=== PATIENT | male | born 1985 | race Two or more races ===

== ENCOUNTER 2021-12-04 21:20 | Inpatient (IN) | payer MEDICARE ==
[~2021-12-04] VITALS: Ht 175.3 cm; Wt 72.6 kg
[2021-12-04 22:16] LABS: Basophils # (auto) 0 10 ^3/uL (0-0.2); Basophils % (auto) 0.6 % (0.0-2.0); Eosinophils # (auto) 0.1 10 ^3/uL (0-0.8); Eosinophils % (auto) 1.1 % (0.0-7.0); Hematocrit 26.1 % (41.0-53.0); Hemoglobin 8.9 g/dL (13.5-17.5); Lymphocytes % (auto) 16.4 % (10.0-50.0); Mean Corpuscular Hemoglobin 29.9 pg (28.0-32.0); Mean Corpuscular Hgb Conc. 34.1 g/dL (32.0-36.0); Mean Corpuscular Volume 87.6 fL (80.0-100.0); Monocytes # (auto) 0.5 10 ^3/uL (0-1.3); Monocytes % (auto) 8.6 % (0.0-12.0); Neutrophils # (auto) 4.7 10 ^3/uL (1.6-8.6); Neutrophils % (auto) 73.3 % (37.0-80.0); Red Blood Cells 2.98 10^6/uL (4.5-5.90); Red Cell Distribution Width 18.3 % (11.8-14.3); White Blood Cell 6.4 10^3/uL (4.4-10.8)
[2021-12-04 22:44] LABS: Albumin 3.6 g/dL (3.4-5.0); Calcium 8.2 mg/dL (8.5-10.1); Magnesium 2.6 mg/dL (1.6-2.6); Potassium 5.2 mmol/L (3.5-5.1)
[2021-12-04] MEDS ORDERED: ACETAMINOPHEN 325 MG TAB PO PRN (22:45)
[2021-12-04] MEDS ORDERED: ONDANSETRON HCL 4 MG/2 ML VIAL IV PRN (22:45)
[2021-12-04] MEDS ORDERED: NITROGLYCERIN 0.4 MG SL TAB SL PRN (22:45)
[2021-12-04] MEDS ORDERED: TEMAZEPAM 15 MG CAP PO PRN (22:45)
[2021-12-04] MEDS ORDERED: MORPHINE SULFATE INJ 2 MG/ml SYRG IV PRN (22:45)
[2021-12-04 22:50] LABS: BUN/Creatinine Ratio 5.2; Bilirubin, Total 0.4 mg/dL (0.2-1.0); Total Protein 7.3 g/dL (6.4-8.2)
[2021-12-05 00:56] LABS: Triglycerides 84 mg/dL (< 150)
[2021-12-05 01:10] LABS: Cholesterol 142 mg/dL (< 200); HDL Cholesterol 45 mg/dL (40-59); LDL Cholesterol 87 mg/dL (< 100)
[2021-12-05] MEDS ORDERED: ALBUTEROL SULF 2.5 MG/0.5ML(0.5%) NEB SOLN NEB ONE (01:45)
[2021-12-05] MEDS ORDERED: CALCIUM GLUC 1,000mg/50ml-NS 50 ML IV ONE (01:45)
[2021-12-05] MEDS ORDERED: SODIUM ZIRCONIUM CYCL 10 GM PAK PO ONE (01:45)
[2021-12-05 05:02] LABS: Basophils # (auto) 0 10 ^3/uL (0-0.2); Basophils % (auto) 0.7 % (0.0-2.0); Hemoglobin 7.7 g/dL (13.5-17.5); Monocytes # (auto) 0.5 10 ^3/uL (0-1.3); Neutrophils # (auto) 3.3 10 ^3/uL (1.6-8.6); White Blood Cell 4.9 10^3/uL (4.4-10.8)
[2021-12-05 05:05] LABS: Eosinophils # (auto) 0.1 10 ^3/uL (0-0.8); Eosinophils % (auto) 1.3 % (0.0-7.0); Lymphocytes % (auto) 20.8 % (10.0-50.0); Mean Corpuscular Hemoglobin 30.7 pg (28.0-32.0); Mean Corpuscular Hgb Conc. 35.1 g/dL (32.0-36.0); Mean Corpuscular Volume 87.4 fL (80.0-100.0); Monocytes % (auto) 10.4 % (0.0-12.0); Neutrophils % (auto) 66.8 % (37.0-80.0); Nucleated Red Blood Cells % 0.1 %; Red Blood Cells 2.52 10^6/uL (4.5-5.90); Red Cell Distribution Width 18.3 % (11.8-14.3)
[2021-12-05 09:15] LABS: Calcium 8.5 mg/dL (8.5-10.1); Potassium 4.1 mmol/L (3.5-5.1)
[2021-12-05] MEDS: ASPirin 81 mg TAB PO SCH (09:37)
[2021-12-05] MEDS: AMIODARONE HCL 200 MG TAB PO SCH ×2 (09:38→21:59)
[2021-12-05] MEDS: METOPROLOL SUCCINATE XL 50 MG TAB PO SCH (09:38)
[2021-12-05] MEDS: SACUBITRIL-VALSARTAN 24mg/26mg TAB PO SCH ×2 (09:38→22:00)
[2021-12-05] MEDS ORDERED: AMIODARONE HCL 200 MG TAB PO SCH (10:00)
[2021-12-05] MEDS ORDERED: ENOXAPARIN SOD 30 MG/0.3 ML SYRINGE SC ONE (11:30)
[2021-12-05 22:00] VITALS: BP 122/76
[2021-12-05] MEDS ORDERED: ATORVASTATIN 20 MG TAB PO SCH (22:00)
[2021-12-06] MEDS ORDERED: METO-289 PO (05:18)
[2021-12-06] MEDS ORDERED: AMIO200T33 PO (05:18)
[2021-12-06 07:30] VITALS: BP 137/87
[2021-12-06 08:59] VITALS: BP 137/87
[2021-12-06] MEDS: SACUBITRIL-VALSARTAN 24mg/26mg TAB PO SCH (10:00)
[2021-12-06] MEDS: METOPROLOL SUCCINATE XL 50 MG TAB PO SCH (10:00)
[2021-12-06] MEDS ORDERED: ENOXAPARIN SOD 30 MG/0.3 ML SYRINGE SC SCH (10:00)
[2021-12-06] MEDS: AMIODARONE HCL 200 MG TAB PO SCH (10:39)
[2021-12-06] MEDS: ASPirin 81 mg TAB PO SCH (10:39)
[2021-12-06 11:56] VITALS: BP 137/87
[2021-12-06 13:14] VITALS: BP 134/89
== END 2021-12-06 14:37 | disposition home or self-care (01) | DRG 280 ==
LOC: ER 21:20 → TELE 22:41 → TELE-CENTR 12-05 21:30
PROVIDERS: ADMIT Nurse Practitioner; ATTEND Student in an Organized Health Care Education/Training Program
DX: I48.0 Paroxysmal atrial fibrillation (principal); I50.23 Acute on chronic systolic (congestive) heart failure; I21.A1 Myocardial infarction type 2; N18.6 End stage renal disease; I13.2 Hypertensive heart and chronic kidney disease with heart failure and with stage 5 chronic kidney disease, or end stage renal disease; J98.11 Atelectasis; E03.9 Hypothyroidism, unspecified; E78.5 Hyperlipidemia, unspecified; Z20.822 Contact with and (suspected) exposure to COVID-19; D63.8 Anemia in other chronic diseases classified elsewhere; Z99.2 Dependence on renal dialysis
CPT/HCPCS: 36415; 71045; 80048; 80053; 80061; 83036; 83735; 83880; 84443; 84484; 85025; 87081; 87426; 93005; 93306; 94640; G0378

== ENCOUNTER 2023-01-13 09:42 | Inpatient (IN) | payer MEDICARE ==
[~2023-01-13] VITALS: Ht 172.7 cm; Wt 68.3 kg
[~2023-01-13 09:42] MED LIST: AMIO200T33 PO; METO-289 PO
[2023-01-13] MEDS ORDERED: SODIUM CHLORIDE 0.9% 1,000 ML IV ONE (10:45)
[2023-01-13 10:58] LABS: Basophils # (auto) 0 10 ^3/uL (0-0.2); Eosinophils # (auto) 0 10 ^3/uL (0-0.8); Lymphocytes # (auto) 0.6 10 ^3/uL (0.4-5.4); Mean Corpuscular Hemoglobin 29.8 pg (28.0-32.0); Mean Corpuscular Hgb Conc. 32.9 g/dL (32.0-36.0); Mean Corpuscular Volume 90.6 fL (80.0-100.0); Monocytes # (auto) 0.4 10 ^3/uL (0-1.3); Neutrophils # (auto) 3.5 10 ^3/uL (1.6-8.6); Red Blood Cells 1.88 10^6/uL (4.5-5.90); White Blood Cell 4.5 10^3/uL (4.4-10.8)
[2023-01-13 10:59] LABS: Basophils % (auto) 0.5 % (0.0-2.0); Eosinophils % (auto) 0.1 % (0.0-7.0); Lymphocytes % (auto) 13.9 % (10.0-50.0); Monocytes % (auto) 8.2 % (0.0-12.0); Neutrophils % (auto) 77.3 % (37.0-80.0); Nucleated Red Blood Cells % 0.2 %; Red Cell Distribution Width 16.8 % (11.8-14.3)
[2023-01-13 11:14] LABS: Alanine Aminotransferase 11 U/L (7-40); Albumin 4.2 g/dL (3.2-4.8); Alkaline Phosphatase 85 U/L (46-116); Anion Gap 8 (5-15); Aspartate Aminotransferase < 8 U/L (13-40); BUN/Creatinine Ratio 5.4 (10.0-20.0); Bilirubin, Total 0.5 mg/dL (0.2-1.0); Blood Urea Nitrogen 37 mg/dL (9-23); Calcium 9.4 mg/dL (8.5-10.1); Carbon Dioxide 30 mmol/L (20-30); Chloride 91 mmol/L (98-107); Glucose 81 mg/dL (74-106); Potassium 4.1 mmol/L (3.5-5.1); Sodium 129 mmol/L (136-145); Total Protein 7.1 g/dL (5.7-8.2)
[2023-01-13 11:32] LABS: Hemoglobin 5.6 g/dL (13.5-17.5)
[2023-01-13 11:44] LABS: INR 1.26 (0.9-1.15); Partial Thromboplastin Time 34.2 SEC (24.5-34.5)
[2023-01-13] MEDS ORDERED: FUROSEMIDE 20 MG/2 ML VIAL IV ONE (12:00)
[2023-01-13 12:32] LABS: Platelet Estimate Adequate
[2023-01-13] MEDS ORDERED: MORPHINE SULFATE INJ 2 MG/ml SYRG IV PRN (13:30)
[2023-01-13] MEDS ORDERED: NITROGLYCERIN 0.4 MG SL TAB SL PRN (13:30)
[2023-01-13] MEDS ORDERED: ONDANSETRON HCL 4 MG/2 ML VIAL IV PRN (13:30)
[2023-01-13] MEDS ORDERED: ACETAMINOPHEN 325 MG TAB PO PRN (13:30)
[2023-01-13] MEDS ORDERED: DOCUSATE SOD 100 MG CAP PO PRN (13:30)
[2023-01-13] MEDS ORDERED: CALC0.5C PO (13:31)
[2023-01-13] MEDS ORDERED: FERR1TAB17 PO (13:31)
[2023-01-13] MEDS ORDERED: METO1TAB9 PO (13:31)
[2023-01-13] MEDS ORDERED: CINA30TA14 PO (13:31)
[2023-01-13] MEDS ORDERED: hydrALAZINE HCL 20 MG/ML VL IV PRN (14:00)
[2023-01-13] MEDS: FUROSEMIDE 40 MG/4 ML VIAL IV ONE ×2 (14:11→14:15)
[2023-01-13 21:33] VITALS: PULSE 102; RESP 20; O2SAT 95
[2023-01-13 22:19] VITALS: BP 115/75; PULSE 104; RESP 20; TEMP 102.4
[2023-01-13 22:34] VITALS: BP 113/73; PULSE 100; RESP 19; TEMP 101.1
[2023-01-13 23:00] VITALS: BP 116/72; PULSE 99; RESP 19; TEMP 99.1
[2023-01-13 23:30] VITALS: BP 114/71; PULSE 98; RESP 18; TEMP 99.1
[2023-01-14] VITALS (9 sets, daily range): BP systolic 113–135; BP diastolic 69–86; PULSE 68–98; RESP 16–18; TEMP 36.8; O2SAT 95–99
[2023-01-14 05:58] LABS: Basophils # (auto) 0 10 ^3/uL (0-0.2); Eosinophils # (auto) 0 10 ^3/uL (0-0.8); Lymphocytes # (auto) 0.8 10 ^3/uL (0.4-5.4); White Blood Cell 5.2 10^3/uL (4.4-10.8)
[2023-01-14 06:00] LABS: Basophils % (auto) 0.7 % (0.0-2.0); Eosinophils % (auto) 0.1 % (0.0-7.0); Hematocrit 18.8 % (41.0-53.0); Lymphocytes % (auto) 15.1 % (10.0-50.0); Mean Corpuscular Hemoglobin 30.4 pg (28.0-32.0); Mean Corpuscular Volume 89.6 fL (80.0-100.0); Monocytes # (auto) 0.6 10 ^3/uL (0-1.3); Monocytes % (auto) 10.6 % (0.0-12.0); Neutrophils # (auto) 3.9 10 ^3/uL (1.6-8.6); Neutrophils % (auto) 73.5 % (37.0-80.0); Red Cell Distribution Width 15.8 % (11.8-14.3)
[2023-01-14 06:13] LABS: Albumin 3.9 g/dL (3.2-4.8); Alkaline Phosphatase 85 U/L (46-116); Anion Gap 10 (5-15); Aspartate Aminotransferase < 8 U/L (13-40); BUN/Creatinine Ratio 7.1 (10.0-20.0); Calcium 9.3 mg/dL (8.5-10.1); Carbon Dioxide 27 mmol/L (20-30); Chloride 95 mmol/L (98-107); Glucose 91 mg/dL (74-106); Potassium 5.2 mmol/L (3.5-5.1); Sodium 132 mmol/L (136-145)
[2023-01-14 06:14] LABS: Bilirubin, Total 0.3 mg/dL (0.2-1.0); Total Protein 6.7 g/dL (5.7-8.2)
[2023-01-14 06:21] LABS: Hemoglobin 6.4 g/dL (13.5-17.5)
[2023-01-14 06:56] LABS: Alanine Aminotransferase 10 U/L (7-40)
[2023-01-14 07:00] LABS: Blood Urea Nitrogen 64 mg/dL (9-23)
[2023-01-14] MEDS ORDERED: SODIUM CHL 0.9% 1000 ML BAG XX ONE (07:00)
[2023-01-14] MEDS ORDERED: METOPROLOL SUCCINATE XL 50 MG TAB PO SCH (10:00)
[2023-01-14] MEDS ORDERED: CINACALCET HYDROCHLORIDE 30 MG TAB PO SCH (10:00)
[2023-01-14] MEDS ORDERED: CALCITRIOL 0.25 MCG CAP PO SCH (10:00)
[2023-01-14 20:51] LABS: Body Fluid Red Blood Cells 561000 CUMM (0-2000); Body Fluid White Blood Cells 500 CUMM (0-200)
[2023-01-14 20:52] LABS: Body Fluid Polymorphonuclear 80 % (0-25)
[2023-01-14] MEDS ORDERED: EPOETIN ALFA-EPBX 4,000 UNIT/ML VIAL SC ONE (21:00)
[2023-01-15 14:06] LABS: Glucose, Body Fluid <2 mg/dL (.); LD, Body Fluid 665 IU/L (.); Protein, Body Fluid 5.2 g/dL (.)
== END 2023-01-14 16:51 | disposition home or self-care (01) | DRG 291 ==
LOC: ER 09:42 → TELE 13:31 → TELE-WESTW 01-14 08:12
PROVIDERS: ADMIT Nurse Practitioner Family; ATTEND Internal Medicine Geriatric Medicine
PROC: 30233N1 Transfusion of Nonautologous Red Blood Cells into Peripheral Vein, Percutaneous Approach (ICD-10-PCS; principal; 2023-01-13)
PROC: 0W9B3ZZ Drainage of Left Pleural Cavity, Percutaneous Approach (ICD-10-PCS; 2023-01-14)
PROC: 5A1D70Z Performance of Urinary Filtration, Intermittent, Less than 6 Hours Per Day (ICD-10-PCS; 2023-01-14)
DX: I13.2 Hypertensive heart and chronic kidney disease with heart failure and with stage 5 chronic kidney disease, or end stage renal disease (principal); I50.43 Acute on chronic combined systolic (congestive) and diastolic (congestive) heart failure; N18.6 End stage renal disease; N17.9 Acute kidney failure, unspecified; E87.1 Hypo-osmolality and hyponatremia; J91.8 Pleural effusion in other conditions classified elsewhere; D63.8 Anemia in other chronic diseases classified elsewhere; I42.9 Cardiomyopathy, unspecified; I48.91 Unspecified atrial fibrillation; E87.5 Hyperkalemia; Z79.899 Other long term (current) drug therapy; Z99.2 Dependence on renal dialysis
CPT/HCPCS: 36415; 71045; 76604; 76942; 80053; 83605; 83880; 83986; 84484; 85025; 85610; 85730; 86850; 86900; 86901; 86920; 87205; 89051; 90935; G0378

== ENCOUNTER 2023-10-17 03:18 | Inpatient (IN) | payer MEDICARE ==
[~2023-10-17] VITALS: Ht 172.7 cm; Wt 67.7 kg
[~2023-10-17 03:18] MED LIST changes: +APIX5TAB PO; +CALC0.5C PO; +CINA30TA14 PO; +FERR1TAB17 PO; +METO1TAB9 PO; +SACU1TAB7 PO; +SODI10PA PO; +SPIR25TA8 PO; +SULF1TAB75 PO
[2023-10-17 03:39] LABS: Basophils # (auto) 0.1 10 ^3/uL (0-0.2); Basophils % (auto) 1.5 % (0.0-2.0); Eosinophils # (auto) 0 10 ^3/uL (0-0.8); Hematocrit 29.8 % (41.0-53.0); Hemoglobin 10.3 g/dL (13.5-17.5); Lymphocytes # (auto) 1.1 10 ^3/uL (0.4-5.4); Lymphocytes % (auto) 25.5 % (10.0-50.0); Mean Corpuscular Hemoglobin 32.5 pg (28.0-32.0); Mean Corpuscular Hgb Conc. 34.4 g/dL (32.0-36.0); Mean Corpuscular Volume 94.3 fL (80.0-100.0); Monocytes # (auto) 0.7 10 ^3/uL (0-1.3); Monocytes % (auto) 14.8 % (0.0-12.0); Neutrophils # (auto) 2.6 10 ^3/uL (1.6-8.6); Neutrophils % (auto) 57.2 % (37.0-80.0); Nucleated Red Blood Cells % 0.1 %; Platelet Count (auto) 211 10^3/uL (140-450); Red Blood Cells 3.16 10^6/uL (4.5-5.90); Red Cell Distribution Width 15.5 % (11.8-14.3); White Blood Cell 4.5 10^3/uL (4.4-10.8)
[2023-10-17 03:55] LABS: INR 1.18 (0.9-1.15); Partial Thromboplastin Time 34.7 SEC (24.5-34.5); Prothrombin Time 12.4 sec (9.3-11.8)
[2023-10-17 03:58] LABS: Albumin 4.3 g/dL (3.2-4.8); Alkaline Phosphatase 140 U/L (46-116); Anion Gap 9 (5-15); Aspartate Aminotransferase 9 U/L (13-40); BUN/Creatinine Ratio 5.3 (10.0-20.0); Bilirubin, Total 0.4 mg/dL (0.2-1.0); Blood Urea Nitrogen 39 mg/dL (9-23); Calcium 9.8 mg/dL (8.7-10.4); Carbon Dioxide 29 mmol/L (20-30); Chloride 95 mmol/L (98-107); Glucose 87 mg/dL (74-106); Potassium 4.2 mmol/L (3.5-5.1); Sodium 133 mmol/L (136-145); Total Protein 7.4 g/dL (5.7-8.2)
[2023-10-17 03:59] LABS: Alanine Aminotransferase 9 U/L (7-40)
[2023-10-17] MEDS: dilTIAZem 25 MG/5 ML VIAL IV ONE (04:04)
[2023-10-17] MEDS: dilTIAZem 125mg/125ml BAG KIT 125 ML IV ONE (05:08)
[2023-10-17] MEDS: METOPROLOL TARTRATE 1MG/1ML-5ML VIAL IV ONE (06:29)
[2023-10-17 07:45] VITALS: PULSE 85; RESP 20; O2SAT 100
[2023-10-17] MEDS ORDERED: HYDROcodone-ACET 5/325MG TAB PO PRN (11:00)
[2023-10-17] MEDS ORDERED: DOCUSATE SOD 100 MG CAP PO PRN (11:00)
[2023-10-17] MEDS ORDERED: HYDROmorphone HCL 2 MG/ML VL/or syr IV PRN (11:00)
[2023-10-17] MEDS ORDERED: VANCOMYCIN PER PHARMACY 0 MG IV SCH (11:00)
[2023-10-17] MEDS ORDERED: ONDANSETRON HCL 4 MG/2 ML VIAL IV PRN (11:00)
[2023-10-17] MEDS ORDERED: ACETAMINOPHEN 325 MG TAB PO PRN (11:00)
[2023-10-17] MEDS: METOPROLOL TARTRATE 25 MG TAB PO SCH (11:30)
[2023-10-17] MEDS: FUROSEMIDE 20 MG/2 ML VIAL IV SCH (11:43)
[2023-10-17] MEDS: PIPERACILLIN-TAZOB 3.375GM 100 ML IV ONE (11:44)
[2023-10-17] MEDS: SODIUM CHLOR 0.9% PF (SALINE LOCK) 10ML VIAL/SYR IV SCH (14:03)
[2023-10-17] MEDS: VANCOMYCIN 1.5GM/300ML 300 ML IV ONE (14:11)
[2023-10-17] MEDS: METOPROLOL SUCCINATE XL 50 MG TAB PO ONE (14:29)
[2023-10-17] MEDS: diphenhdrAMINE HCL 50 MG/1 ML VL IV PRN (16:02)
[2023-10-17] MEDS: APIXABAN 5 MG TAB PO SCH (22:41)
[2023-10-17] MEDS: PIPERACILLIN-TAZOB 2.25GM 50 ML IV SCH (22:41)
[2023-10-17] MEDS ORDERED: PIPERACILLIN-TAZOB 3.375GM 100 ML IV SCH (23:00)
[2023-10-18] VITALS (10 sets, daily range): BP systolic 118–134; BP diastolic 66–85; PULSE 73–91; RESP 16–20; TEMP 97.7–98.7; O2SAT 96–100
[2023-10-18] MEDS ORDERED: APIX2.5T PO (01:30)
[2023-10-18 07:38] LABS: Albumin 3.5 g/dL (3.2-4.8); Alkaline Phosphatase 105 U/L (46-116); Anion Gap 11 (5-15); Aspartate Aminotransferase < 8 U/L (13-40); Calcium 9.1 mg/dL (8.7-10.4); Carbon Dioxide 28 mmol/L (20-30); Chloride 98 mmol/L (98-107); Glucose 83 mg/dL (74-106); Magnesium 2.3 mg/dL (1.6-2.6); Potassium 4.5 mmol/L (3.5-5.1); Sodium 137 mmol/L (136-145)
[2023-10-18 07:39] LABS: Alanine Aminotransferase < 9 U/L (7-40); Bilirubin, Total 0.3 mg/dL (0.2-1.0); Blood Urea Nitrogen 51 mg/dL (9-23); Total Protein 6.1 g/dL (5.7-8.2)
[2023-10-18 07:40] LABS: Basophils # (auto) 0 10 ^3/uL (0-0.2); Eosinophils # (auto) 0 10 ^3/uL (0-0.8); Eosinophils % (auto) 1.3 % (0.0-7.0); Hematocrit 26.2 % (41.0-53.0); Hemoglobin 9.1 g/dL (13.5-17.5); Lymphocytes # (auto) 0.8 10 ^3/uL (0.4-5.4); Mean Corpuscular Hgb Conc. 34.7 g/dL (32.0-36.0); Mean Corpuscular Volume 94.9 fL (80.0-100.0); Monocytes # (auto) 0.3 10 ^3/uL (0-1.3); Monocytes % (auto) 10.2 % (0.0-12.0); Neutrophils # (auto) 2.1 10 ^3/uL (1.6-8.6); Neutrophils % (auto) 63.5 % (37.0-80.0); Nucleated Red Blood Cells % 0.1 %; Platelet Count (auto) 220 10^3/uL (140-450); Red Blood Cells 2.76 10^6/uL (4.5-5.90); Red Cell Distribution Width 15.2 % (11.8-14.3); White Blood Cell 3.3 10^3/uL (4.4-10.8)
[2023-10-18] MEDS: CINACALCET HYDROCHLORIDE 30 MG TAB PO SCH (10:00)
[2023-10-18] MEDS ORDERED: AMIODARONE HCL 200 MG TAB PO SCH (10:00)
[2023-10-18] MEDS ORDERED: ENOXAPARIN SOD 30 MG/0.3 ML SYRINGE SC SCH (10:00)
[2023-10-18] MEDS: METOPROLOL SUCCINATE XL 50 MG TAB PO SCH (10:00)
[2023-10-18] MEDS: AMIODARONE HCL 200 MG TAB PO SCH (14:00)
[2023-10-18] MEDS: PIPERACILLIN-TAZOB 3.375GM 100 ML IV SCH (22:11)
[2023-10-18] MEDS: hydrALAZINE HCL 25 MG TAB PO SCH (22:11)
[2023-10-19 05:00] VITALS: BP 134/92; PULSE 76; RESP 16; TEMP 98.2; O2SAT 97
[2023-10-19 06:17] LABS: Basophils # (auto) 0.1 10 ^3/uL (0-0.2); Basophils % (auto) 1.5 % (0.0-2.0); Eosinophils # (auto) 0.1 10 ^3/uL (0-0.8); Eosinophils % (auto) 1.3 % (0.0-7.0); Hematocrit 26.6 % (41.0-53.0); Hemoglobin 9.4 g/dL (13.5-17.5); Lymphocytes # (auto) 0.9 10 ^3/uL (0.4-5.4); Lymphocytes % (auto) 22.1 % (10.0-50.0); Mean Corpuscular Hgb Conc. 35.4 g/dL (32.0-36.0); Mean Corpuscular Volume 96.1 fL (80.0-100.0); Monocytes # (auto) 0.4 10 ^3/uL (0-1.3); Neutrophils # (auto) 2.6 10 ^3/uL (1.6-8.6); Neutrophils % (auto) 65.1 % (37.0-80.0); Nucleated Red Blood Cells % 0.1 %; Platelet Count (auto) 240 10^3/uL (140-450); Red Blood Cells 2.77 10^6/uL (4.5-5.90); Red Cell Distribution Width 15.6 % (11.8-14.3)
[2023-10-19 06:30] LABS: Alanine Aminotransferase 10 U/L (7-40); Albumin 3.9 g/dL (3.2-4.8); Alkaline Phosphatase 118 U/L (46-116); Anion Gap 14 (5-15); Aspartate Aminotransferase < 8 U/L (13-40); BUN/Creatinine Ratio 5.6 (10.0-20.0); Carbon Dioxide 26 mmol/L (20-30); Chloride 100 mmol/L (98-107); Glucose 83 mg/dL (74-106); Magnesium 2.4 mg/dL (1.6-2.6); Potassium 4.6 mmol/L (3.5-5.1); Sodium 140 mmol/L (136-145); Uric Acid 6.6 mg/dL (3.7-9.2)
[2023-10-19 06:31] LABS: Bilirubin, Total 0.3 mg/dL (0.2-1.0); Total Protein 6.7 g/dL (5.7-8.2)
[2023-10-19 06:32] LABS: Blood Urea Nitrogen 68 mg/dL (9-23)
[2023-10-19] MEDS ORDERED: SODIUM CHL 0.9% 1000 ML BAG XX ONE (07:00)
[2023-10-19 08:00] VITALS: PULSE 81; RESP 17
[2023-10-19 09:00] VITALS: BP 140/81; PULSE 72; RESP 18; TEMP 98; O2SAT 99
[2023-10-19] MEDS: ISOSORBIDE MONONITRATE ER 60 MG TAB PO SCH (10:21)
[2023-10-19] MEDS ORDERED: HYDR50TA47 PO (11:13)
[2023-10-19] MEDS ORDERED: ISOS1TAB28 PO (11:13)
[2023-10-19] MEDS ORDERED: EPOETIN ALFA-EPBX 10,000 UNIT/1ML VIAL IV ONE (12:00)
[2023-10-19 13:00] VITALS: BP 136/84; PULSE 72; RESP 16; TEMP 98.2; O2SAT 98
== END 2023-10-19 16:24 | disposition home or self-care (01) | DRG 314 ==
LOC: ER 03:18 → UNDOADMIN 10:52 → TELE 10:52 → TELE-WESTW 23:57
PROVIDERS: ADMIT Internal Medicine; ATTEND Family Medicine
DX: T80.211A Bloodstream infection due to central venous catheter, initial encounter (principal); I50.23 Acute on chronic systolic (congestive) heart failure; N18.6 End stage renal disease; I13.2 Hypertensive heart and chronic kidney disease with heart failure and with stage 5 chronic kidney disease, or end stage renal disease; J98.11 Atelectasis; I47.10 Supraventricular tachycardia, unspecified; I48.0 Paroxysmal atrial fibrillation; D63.1 Anemia in chronic kidney disease; Z79.899 Other long term (current) drug therapy; Z99.2 Dependence on renal dialysis; Y84.8 Other medical procedures as the cause of abnormal reaction of the patient, or of later complication, without mention of misadventure at the time of the procedure; Y92.89 Other specified places as the place of occurrence of the external cause
CPT/HCPCS: 36415; 71045; 80053; 80202; 83735; 83880; 84100; 84443; 84484; 84550; 85025; 85610; 85730; 87040; 87081; 87340; 90935; 93005; 93306; 99291; G0378; J2543

== ENCOUNTER 2023-11-10 20:37 | Inpatient (IN) | payer MEDICARE ==
[~2023-11-10] VITALS: Ht 175.3 cm; Wt 64.9 kg
[~2023-11-10 20:37] MED LIST changes: +HYDR50TA47 PO; +ISOS1TAB28 PO; -METO-289 PO
[2023-11-10 20:59] LABS: Basophils # (auto) 0 10 ^3/uL (0-0.2); Basophils % (auto) 0.7 % (0.0-2.0); Eosinophils # (auto) 0 10 ^3/uL (0-0.8); Eosinophils % (auto) 0.8 % (0.0-7.0); Hematocrit 31.3 % (41.0-53.0); Hemoglobin 10.5 g/dL (13.5-17.5); Lymphocytes # (auto) 0.5 10 ^3/uL (0.4-5.4); Lymphocytes % (auto) 19.5 % (10.0-50.0); Mean Corpuscular Hemoglobin 33.6 pg (28.0-32.0); Mean Corpuscular Hgb Conc. 33.7 g/dL (32.0-36.0); Mean Corpuscular Volume 99.9 fL (80.0-100.0); Monocytes # (auto) 0 10 ^3/uL (0-1.3); Monocytes % (auto) 0.4 % (0.0-12.0); Neutrophils # (auto) 2.2 10 ^3/uL (1.6-8.6); Neutrophils % (auto) 78.6 % (37.0-80.0); Nucleated Red Blood Cells % 0.5 %; Platelet Count (auto) 178 10^3/uL (140-450); Red Blood Cells 3.13 10^6/uL (4.5-5.90); Red Cell Distribution Width 17.1 % (11.8-14.3); White Blood Cell 2.7 10^3/uL (4.4-10.8)
[2023-11-10 21:17] LABS: Alanine Aminotransferase 21 U/L (7-40); Albumin 4.6 g/dL (3.2-4.8); Alkaline Phosphatase 150 U/L (46-116); Anion Gap 16 (5-15); Aspartate Aminotransferase 20 U/L (13-40); BUN/Creatinine Ratio 7.3 (10.0-20.0); Calcium 9.6 mg/dL (8.7-10.4); Carbon Dioxide 26 mmol/L (20-31); Chloride 97 mmol/L (98-107); Glucose 86 mg/dL (74-106); INR 1.28 (0.9-1.15); Magnesium 2.1 mg/dL (1.6-2.6); Partial Thromboplastin Time 24.9 SEC (24.5-34.5); Potassium 4.5 mmol/L (3.5-5.1); Prothrombin Time 13.3 sec (9.3-11.8); Sodium 139 mmol/L (136-145)
[2023-11-10 21:18] LABS: Bilirubin, Total 0.6 mg/dL (0.2-1.0); Total Protein 7.6 g/dL (5.7-8.2)
[2023-11-10 21:21] LABS: Blood Urea Nitrogen 80 mg/dL (9-23)
[2023-11-10] MEDS: PIPERACILLIN-TAZOB 3.375GM 100 ML IV SCH (22:00)
[2023-11-10 22:36] LABS: Alanine Aminotransferase 19 U/L (7-40); Albumin 4.3 g/dL (3.2-4.8); Alkaline Phosphatase 138 U/L (46-116); Anion Gap 17 (5-15); Aspartate Aminotransferase 20 U/L (13-40); Bilirubin, Total 0.6 mg/dL (0.2-1.0); Blood Urea Nitrogen 78 mg/dL (9-23); Calcium 9.3 mg/dL (8.7-10.4); Carbon Dioxide 22 mmol/L (20-31); Chloride 97 mmol/L (98-107); Glucose 82 mg/dL (74-106); Potassium 4.5 mmol/L (3.5-5.1); Sodium 136 mmol/L (136-145)
[2023-11-10 23:57] LABS: Basophils # (auto) 0 10 ^3/uL (0-0.2); Eosinophils # (auto) 0 10 ^3/uL (0-0.8); Eosinophils % (auto) 0.1 % (0.0-7.0); Lymphocytes # (auto) 0.3 10 ^3/uL (0.4-5.4); Monocytes # (auto) 0.2 10 ^3/uL (0-1.3); Nucleated Red Blood Cells % 0.1 %
[2023-11-11] LABS: Basophils % (auto) 0.5 % (0.0-2.0); Hematocrit 26.7 % (41.0-53.0); Hemoglobin 9.3 g/dL (13.5-17.5); Lymphocytes % (auto) 5.1 % (10.0-50.0); Mean Corpuscular Hemoglobin 34.9 pg (28.0-32.0); Mean Corpuscular Hgb Conc. 34.9 g/dL (32.0-36.0); Monocytes % (auto) 3.7 % (0.0-12.0); Neutrophils # (auto) 5.9 10 ^3/uL (1.6-8.6); Neutrophils % (auto) 90.6 % (37.0-80.0); Platelet Count (auto) 122 10^3/uL (140-450); Red Blood Cells 2.67 10^6/uL (4.5-5.90); Red Cell Distribution Width 16.8 % (11.8-14.3); White Blood Cell 6.5 10^3/uL (4.4-10.8)
[2023-11-11] MEDS: ACETAMINOPHEN 325 MG TAB PO ONE (01:32)
[2023-11-11] MEDS ORDERED: VANCOMYCIN PER PHARMACY 0 MG IV SCH ×2 (04:30→04:45)
[2023-11-11] MEDS ORDERED: PIPERACILLIN-TAZOB 3.375GM 100 ML IV ONE (04:30)
[2023-11-11] MEDS: PIPERACILLIN-TAZOB 3.375GM 100 ML IV ONE (05:52)
[2023-11-11] MEDS: HEPARIN SODIUM (PORCINE) 5000 UNITS/ML 1ML VIAL SC SCH (06:23)
[2023-11-11 06:41] VITALS: RESP 16; O2SAT 96
[2023-11-11 06:55] LABS: COVID19 ANTIGEN SOFIA FIA NEGATIVE (NEGATIVE)
[2023-11-11 07:40] LABS: Basophils # (auto) 0.1 10 ^3/uL (0-0.2); Basophils % (auto) 0.7 % (0.0-2.0); Eosinophils # (auto) 0 10 ^3/uL (0-0.8); Hematocrit 27.9 % (41.0-53.0); Hemoglobin 9.6 g/dL (13.5-17.5); Lymphocytes # (auto) 0.7 10 ^3/uL (0.4-5.4); Lymphocytes % (auto) 8.1 % (10.0-50.0); Mean Corpuscular Hgb Conc. 34.3 g/dL (32.0-36.0); Mean Corpuscular Volume 98.9 fL (80.0-100.0); Monocytes # (auto) 0.5 10 ^3/uL (0-1.3); Monocytes % (auto) 5.5 % (0.0-12.0); Neutrophils # (auto) 7.3 10 ^3/uL (1.6-8.6); Neutrophils % (auto) 85.7 % (37.0-80.0); Nucleated Red Blood Cells % 0.1 %; Platelet Count (auto) 127 10^3/uL (140-450); Red Blood Cells 2.82 10^6/uL (4.5-5.90); Red Cell Distribution Width 17.3 % (11.8-14.3); White Blood Cell 8.6 10^3/uL (4.4-10.8)
[2023-11-11 07:46] LABS: Chloride 98 mmol/L (98-107); Potassium 5.3 mmol/L (3.5-5.1); Sodium 135 mmol/L (136-145)
[2023-11-11 07:47] LABS: Anion Gap 11 (5-15); Calcium 9.5 mg/dL (8.7-10.4); Carbon Dioxide 26 mmol/L (20-31)
[2023-11-11 07:50] LABS: Rapid Influenza A Negative (Negative); Rapid Influenza B Negative (Negative)
[2023-11-11 07:52] LABS: BUN/Creatinine Ratio 7.4 (10.0-20.0); Glucose 93 mg/dL (74-106)
[2023-11-11 07:57] LABS: Blood Urea Nitrogen 91 mg/dL (9-23)
[2023-11-11] MEDS: VANCOMYCIN 1GM/250ML 200 ML IV ONE (09:20)
[2023-11-11] MEDS ORDERED: PIPERACILLIN-TAZOB 3.375GM 100 ML IV SCH (10:00)
[2023-11-11] MEDS: VANCOMYCIN 500 MG in D5W 5% 100 ML IV ONE (10:00)
[2023-11-11] MEDS: SODIUM ZIRCONIUM CYCL 10 GM PAK PO ONE (12:40)
[2023-11-11] MEDS: DEXTROSE (50%) 50ML SYRG IV ONE (15:15)
[2023-11-11] MEDS: InsuLIN REG 1unit/0.01ml Soln (100units/ml) IV ONE (15:15)
[2023-11-11 15:46] VITALS: PULSE 79; RESP 18; O2SAT 99
[2023-11-11 15:47] VITALS: BP_SYST 83; PULSE 99; RESP 18; TEMP 98.3; O2SAT 99
[2023-11-11 16:38] LABS: Body Fluid White Blood Cells 61 CUMM (0-200)
[2023-11-11 16:39] LABS: Body Fluid Red Blood Cells 142 CUMM (0-2000)
[2023-11-11] MEDS: SODIUM ZIRCONIUM CYCL 10 GM PAK PO SCH (16:46)
[2023-11-11 17:00] VITALS: BP 123/83; PULSE 79; RESP 20; TEMP 98.3; O2SAT 99
[2023-11-11 17:07] LABS: Body Fluid Polymorphonuclear 8 % (0-25)
[2023-11-11 20:00] VITALS: PULSE 82; PULSE 83; RESP 17; O2SAT 96
[2023-11-11] MEDS: APIXABAN 5 MG TAB PO SCH (21:25)
[2023-11-11] MEDS: hydrALAZINE HCL 25 MG TAB PO SCH (21:25)
[2023-11-11 22:00] VITALS: BP 118/79; PULSE 83; RESP 17; TEMP 98.6; O2SAT 98
[2023-11-12] VITALS (8 sets, daily range): BP systolic 114–141; BP diastolic 72–83; PULSE 66–79; RESP 16–18; TEMP 97.5–98.4; O2SAT 97–100
[2023-11-12 06:33] LABS: Basophils # (auto) 0 10 ^3/uL (0-0.2); Eosinophils # (auto) 0 10 ^3/uL (0-0.8); Eosinophils % (auto) 0.8 % (0.0-7.0); Mean Corpuscular Hemoglobin 34.2 pg (28.0-32.0); Neutrophils # (auto) 3.7 10 ^3/uL (1.6-8.6); Nucleated Red Blood Cells % 0.1 %; White Blood Cell 4.6 10^3/uL (4.4-10.8)
[2023-11-12 06:38] LABS: Basophils % (auto) 0.9 % (0.0-2.0); Hematocrit 25.8 % (41.0-53.0); Lymphocytes # (auto) 0.5 10 ^3/uL (0.4-5.4); Lymphocytes % (auto) 10.8 % (10.0-50.0); Mean Corpuscular Volume 97.8 fL (80.0-100.0); Monocytes # (auto) 0.3 10 ^3/uL (0-1.3); Monocytes % (auto) 7.6 % (0.0-12.0); Neutrophils % (auto) 79.9 % (37.0-80.0); Platelet Count (auto) 111 10^3/uL (140-450); Red Blood Cells 2.64 10^6/uL (4.5-5.90); Red Cell Distribution Width 16.8 % (11.8-14.3)
[2023-11-12 06:40] LABS: % Iron Saturation 16.2 % (20-55)
[2023-11-12 06:42] LABS: Alanine Aminotransferase 13 U/L (7-40); Albumin 3.5 g/dL (3.2-4.8); Alkaline Phosphatase 101 U/L (46-116); Anion Gap 15 (5-15); Aspartate Aminotransferase 11 U/L (13-40); BUN/Creatinine Ratio 7.2 (10.0-20.0); Carbon Dioxide 23 mmol/L (20-31); Chloride 98 mmol/L (98-107); Glucose 82 mg/dL (74-106); Potassium 4.9 mmol/L (3.5-5.1); Sodium 136 mmol/L (136-145)
[2023-11-12 06:43] LABS: Bilirubin, Total 0.5 mg/dL (0.2-1.0); Total Protein 5.9 g/dL (5.7-8.2)
[2023-11-12 06:53] LABS: Blood Urea Nitrogen 104 mg/dL (9-23)
[2023-11-12 09:09] LABS: Hepatitis B Surface Antigen Negative (Negative)
[2023-11-12 09:29] LABS: Hepatitis A Ab IgM Negative
[2023-11-12 09:30] LABS: Hepatitis B Core IgM Negative
[2023-11-12 09:32] LABS: Hepatitis C Antibody Negative (Negative)
[2023-11-12] MEDS ORDERED: SPIRONOLACTONE 25 MG TAB PO SCH (10:00)
[2023-11-12] MEDS: ISOSORBIDE MONONITRATE ER 60 MG TAB PO SCH (10:00)
[2023-11-12] MEDS: AMIODARONE HCL 200 MG TAB PO SCH (10:31)
[2023-11-12] MEDS: SODIUM CHL 0.9% 1000 ML BAG XX ONE (14:00)
[2023-11-12 14:06] LABS: Protein, Body Fluid 2.8 g/dL (.)
[2023-11-12] MEDS: SACUBITRIL-VALSARTAN 24mg/26mg TAB PO SCH (19:00)
[2023-11-12] MEDS: METOPROLOL SUCCINATE XL 50 MG TAB PO SCH (19:00)
[2023-11-12] MEDS ORDERED: MORPHINE SULFATE INJ 2 MG/ml SYRG IV PRN (19:30)
[2023-11-12] MEDS ORDERED: NITROGLYCERIN 0.4 MG SL TAB SL PRN (19:30)
[2023-11-12 20:04] LABS: Potassium 3.8 mmol/L (3.5-5.1)
[2023-11-12 20:11] LABS: Magnesium 2.2 mg/dL (1.6-2.6)
[2023-11-12] MEDS: PIPERACILLIN-TAZOB 2.25GM 50 ML IV SCH (22:34)
[2023-11-12] MEDS: EPOETIN ALFA-EPBX 10,000 UNIT/1ML VIAL SC ONE (22:37)
[2023-11-13 01:00] VITALS: BP 130/61; PULSE 75; RESP 18; TEMP 98.4; O2SAT 95
[2023-11-13 05:00] VITALS: BP 103/56; PULSE 71; RESP 18; TEMP 98.5; O2SAT 98
[2023-11-13 07:11] LABS: Basophils # (auto) 0 10 ^3/uL (0-0.2); Eosinophils # (auto) 0 10 ^3/uL (0-0.8); Hemoglobin 9.9 g/dL (13.5-17.5); Lymphocytes # (auto) 0.5 10 ^3/uL (0.4-5.4); Monocytes # (auto) 0.4 10 ^3/uL (0-1.3); Nucleated Red Blood Cells % 0.1 %; Platelet Count (auto) 128 10^3/uL (140-450); Red Blood Cells 2.84 10^6/uL (4.5-5.90); White Blood Cell 3.4 10^3/uL (4.4-10.8)
[2023-11-13 07:16] LABS: Hematocrit 27.7 % (41.0-53.0); Lymphocytes % (auto) 14.5 % (10.0-50.0); Mean Corpuscular Hemoglobin 34.9 pg (28.0-32.0); Mean Corpuscular Hgb Conc. 35.8 g/dL (32.0-36.0); Mean Corpuscular Volume 97.5 fL (80.0-100.0); Neutrophils # (auto) 2.4 10 ^3/uL (1.6-8.6); Neutrophils % (auto) 71.5 % (37.0-80.0); Red Cell Distribution Width 16.6 % (11.8-14.3)
[2023-11-13 07:25] LABS: Alanine Aminotransferase 14 U/L (7-40); Albumin 3.5 g/dL (3.2-4.8); Alkaline Phosphatase 99 U/L (46-116); Anion Gap 12 (5-15); Aspartate Aminotransferase 11 U/L (13-40); BUN/Creatinine Ratio 5.9 (10.0-20.0); Bilirubin, Total 0.4 mg/dL (0.2-1.0); Calcium 8.9 mg/dL (8.7-10.4); Carbon Dioxide 27 mmol/L (20-31); Chloride 101 mmol/L (98-107); Glucose 88 mg/dL (74-106); Potassium 4.5 mmol/L (3.5-5.1); Sodium 140 mmol/L (136-145); Total Protein 5.7 g/dL (5.7-8.2)
[2023-11-13 07:27] LABS: Blood Urea Nitrogen 61 mg/dL (9-23)
[2023-11-13] MEDS ORDERED: CIPR250T3 PO (07:36)
[2023-11-13 08:00] VITALS: PULSE 69; RESP 16; O2SAT 98
[2023-11-13 08:51] VITALS: BP 115/73; PULSE 69; RESP 16; TEMP 97.8; O2SAT 98
[2023-11-13 10:45] VITALS: BP 122/75; PULSE 123; TEMP 36.6
[2023-11-13] MEDS: VANCOMYCIN 1GM/250ML 200 ML IV ONE (10:45)
[2023-11-13 13:24] VITALS: BP 109/70; PULSE 77; RESP 16; TEMP 97.8; O2SAT 98
== END 2023-11-13 14:30 | disposition home or self-care (01) | DRG 871 ==
LOC: ER 20:37 → OVERFLOW 11-11 04:26 → ER 11-11 04:26 → EAST 11-11 15:20 → TELE-E-ADS 11-12 22:18
PROVIDERS: ADMIT Internal Medicine; ATTEND Internal Medicine
PROC: 0W993ZX Drainage of Right Pleural Cavity, Percutaneous Approach, Diagnostic (ICD-10-PCS; principal; 2023-11-11)
PROC: 5A1D70Z Performance of Urinary Filtration, Intermittent, Less than 6 Hours Per Day (ICD-10-PCS; 2023-11-12)
DX: A41.50 Gram-negative sepsis, unspecified (principal); I50.23 Acute on chronic systolic (congestive) heart failure; J15.69 Pneumonia due to other Gram-negative bacteria; N18.6 End stage renal disease; J15.9 Unspecified bacterial pneumonia; J98.11 Atelectasis; I13.2 Hypertensive heart and chronic kidney disease with heart failure and with stage 5 chronic kidney disease, or end stage renal disease; J91.8 Pleural effusion in other conditions classified elsewhere; I47.10 Supraventricular tachycardia, unspecified; Z20.822 Contact with and (suspected) exposure to COVID-19; D63.1 Anemia in chronic kidney disease; E87.5 Hyperkalemia; I48.0 Paroxysmal atrial fibrillation; D69.6 Thrombocytopenia, unspecified; Z99.2 Dependence on renal dialysis; Z88.1 Allergy status to other antibiotic agents
CPT/HCPCS: 36415; 70450; 71045; 71250; 74176; 76604; 76942; 80048; 80053; 80074; 80202; 82728; 82962; 83540; 83550; 83605; 83735; 83880; 83986; 84132; 84484; 85025; 85610; 85730; 87040; 87070; 87081; 87205; 87426; 87804; 89051; 90935; 93005; G0378; J1815; J2543; J7060

== ENCOUNTER 2024-12-19 20:05 | Inpatient (IN) | payer MEDICARE ==
[~2024-12-19] VITALS: Ht 172.7 cm; Wt 66.7 kg
[~2024-12-19 20:05] MED LIST changes: +CIPR250T3 PO
[2024-12-19 20:19] VITALS: BP 139/82; PULSE 88; RESP 20; TEMP 98.8; O2SAT 92
--- NOTE | 2024-12-19 20:47 | ED.PDOC ---
History of Present Illness HPI Comments 39 year old male who came to ER for shortness of breath. Patient has a history of hypertension, AFib, SVT, congestive heart failure, pleural effusion, end- stage renal disease, on dialysis every Thursday. Finished his dialysis earlier today, and shortly after was started having cough and shortness of breath, progressively worsening, with right-sided chest pains. Was saturating 92% on room air REVIEW OF SYSTEMS: General: No fever, no chills, or fatigue HEENT: No sore throat, no earache, no congestion, no neck pain. Cardiac: (+) chest pain. No palpitations. Lungs: (+) shortness of breath, no cough. GI: No nausea, no vomiting, no diarrhea, no constipation, no abdominal pain : No dysuria, frequency, or urgency. No hematuria. Musculoskeletal: No joint pain , no joint swelling, no extremity edema. Skin: No rash, no itching. Neuro: No headache, no dizziness, no weakness EXAM: General: Awake, alert and oriented. No acute distress. Skin: Skin in warm, dry and intact. Appropriate color for ethnicity. HEENT: The head is normocephalic and atraumatic. Conjunctivae are clear without exudates or hemorrhage. Sclera is non-icteric. EOM are intact. No signs of nystagmus. Eyelids are normal in appearance without swelling or lesions. Oral mucosa is pink and moist Neck: The neck is supple with normal range of motion. No JVD. Cardiac: Heart rate and rhythm are normal. No murmurs, gallops, or rubs are auscultated. Respiratory: No signs of respiratory distress. Diminished lung sounds right lung. Abdominal: Abdomen is soft, non-tender without distention. Bowel sounds are present and normoactive in all four quadrants. Extremities: Upper and lower extremities are atraumatic in appearance without deformity or edema. Neurological: The patient is awake, alert and oriented to person, place, and time with normal speech. Speech is clear. There is no facial asymmetry. Psychiatric: Appropriate mood and affect. Good judgement and insight Chief Complaint: Shortness of Breath Time Seen by MD: 20:46 Primary Care Provider: SANCHEZ Castillo Notes: Nurses Notes Allergies: Coded Allergies: Vancomycin (Verified Allergy, Unknown, itchiness and rash, 11/11/23) Home Meds Active Scripts Ciprofloxacin Hcl (Ciprofloxacin Hcl) 250 Mg Tab, 1 TAB PO BID for 7 Days, #14 TAB Prov:ODIN CASTLE RESIDENT 11/13/23 Hydralazine Hcl (Hydralazine Hcl) 50 Mg Tab, 1 TAB PO BID, #180 TAB 3 Refills Prov:EDWARD LONG MD 10/19/23 Isosorbide Mononitrate (Isosorbide Mononitrate Er) 30 Mg Tab, 1 TAB PO DAILY, #90 TAB 1 Refill Prov:EDWARD LONG MD 10/19/23 Reported Medications Sodium Zirconium Cyclosilicate (Lokelma) 10 Gm Tigre, 1 PACK PO DAILY for 90 Days, #90 10/19/23 Spironolactone (Spironolactone) 25 Mg Tab, 1 TAB PO DAILY for 90 Days, #90 10/19/23 Sulfamethoxazole W/Trimethopri (Smz-Tmp Ds) 1 Tab Tab, 1 TAB PO BID for 7 Days, #14 10/19/23 Apixaban Base (ELIQUIS) 5 Mg Tab, 1 TAB PO BID for 90 Days, #180 10/19/23 Sacubitril-Valsartan (Entresto 49-51 mg) 1 Tab Tab, 1 TAB PO BID for 90 Days, #180 10/18/23 Cinacalcet HCl (Cinacalcet Hydrochloride) 30 Mg Tab, 1 TAB PO DAILY for 30 Days, #30 01/13/23 Calcitriol (Calcitriol) 0.5 Mcg Cap, 1 CAP PO DAILY for 30 Days, #30 01/13/23 Ferric Citrate (Auryxia) 210 Mg Tab, 210 MG PO DAILY 01/13/23 Metoprolol Succinate (Metoprolol Succinate Er) 100 Mg Tab, 1 TAB PO DAILY for 90 Days, #90 01/13/23 Amiodarone Hcl (Amiodarone Hcl) 200 Mg Tab, 200 MG PO DAILY for 30 Days 12/06/21 Information Source: Patient Mode of Arrival: Ambulatory Past Medical History PAST MEDICAL HISTORY: AFIB, Anemia, CHF, ESRD, HTN Past Medical History (Other): Pleural effusion Surgical History (Other): Cardiac ablation, thoracentesis, dialysis Thursday Family History Family History: Reviewed,noncontributory to illness, Unknown Social History Smoker: Non-Smoker Alcohol: Denies ETOH Use Drugs: Denies Drug Use Lives In: Home Was a procedure done? Was a procedure done?: No Differential Dx Considerations may include: Differential diagnoses considered includebut arenot limited to acute Bronchitis, Asthma, COPD, Pneumothorax, PE, CHF, Pulmonary HTN, Anemia, CO Poisoning, Methemoglobinemia, Hyperventilation, Metabolic Acidosis, Pulmonary Edema, Pneumonia, ACS, Pericardial Tamponade, Anxiety, other X-Ray, Labs, Meds, VS Vital Signs Date Time Temp Pulse Resp B/P (MAP) Pulse Ox O2 Delivery O2 Flow Rate FiO2 12/19/24 20:19 98.8 88 20 139/82 92 98.8 Lab Test 12/19/24 21:07 12/19/24 20:56 Range/Units White Blood Count Pending Red Blood Count Pending Hemoglobin Pending Hematocrit Pending Mean Corpuscular Volume Pending Mean Corpuscular Hemoglobin Pending Mean Corpuscular Hemoglobin Concent Pending Red Cell Distribution Width Pending Platelet Count Pending Mean Platelet Volume Pending Neutrophils (%) (Auto) Pending Lymphocytes (%) (Auto) Pending Monocytes (%) (Auto) Pending Basophils (%) (Auto) Pending Neutrophils # (Auto) Pending Lymphocytes # (Auto) Pending Monocytes # (Auto) Pending Sodium Level Pending Potassium Level Pending Chloride Level Pending Carbon Dioxide Level Pending Anion Gap Pending Blood Urea Nitrogen Pending Creatinine Pending Glomerular Filtration Rate Calc Pending BUN/Creatinine Ratio Pending Serum Glucose Pending Lactic Acid Level Pending Calcium Level Pending Total Bilirubin Pending Aspartate Amino Transferase (AST) Pending Alanine Aminotransferase (ALT) Pending Alkaline Phosphatase Pending Troponin I High Sensitivity Pending B-Type Natriuretic Peptide Pending Total Protein Pending Albumin Pending Blood Gas Specimen Type Arterial Blood Gas Sample Site Right radial Blood Gas Patient Temperature 37.0 Arterial Blood Date Drawn [id number] Arterial Blood pH 7.511 H 7.350-7.450 Arterial Blood Partial Pressure CO2 34.2 L 35.0-48.0 mmHg Arterial Blood Partial Pressure O2 92.1 83.0-108.0 mmHg Arterial Blood HCO3 26.7 21.0-28.0 mmol/L Arterial Blood Oxygen Saturation 96.6 94.0-98.0 % Arterial Blood Base Excess 3.7 H -2.0-3.0 mmol/L Arterial Blood Oxyhemoglobin 95.7 94.0-98.0 % Arterial Blood Carboxyhemoglobin 0.4 L 0.5-1.5 % Arterial Blood Methemoglobin 0.5 0.0-1.5 % Vitaly Test Positive Blood Gas Total Hemoglobin 8.60 L 13.5-17.5 g/dL Blood Gas Liter Flow 3.00 Blood Gas Modality Nasal cannula FiO2 % 32.0 Time of 1ST Reevaluation: 20:41 Reevaluation 1ST: Unchanged Patient Education/Counseling: Need For Follow Up Family Education/Counseling: No Family Present SEPSIS Sepsis Screen Date sepsis recognized/suspect: Dec 19, 2024 Time Sepsis recognized/suspect: 2018 Recent Procedure: No On Antibiotic Therapy: No Respiratory Rate >20: No Heart Rate >90: No Temp<36 C (96.8 F) or >38.3 C: No SBP <90 or MAP <65 mmHG: No New Acute Mental Status Change: No Is the patient on CPAP, BIPAP,: No Physician Orders B-Type Natriuretic Peptide (12/19/24 20:42) Complete Blood Count (12/19/24 20:42) Comprehensive Metabolic Panel (12/19/24 20:42) Abg W/ Co-Ox (12/19/24 20:42) Troponin-I Hs (12/19/24 20:42) Lactic Acid W/ Reflex Order (12/19/24 20:42) Covid19 Antigen Laura (12/19/24 ) Rapid Influenza A&B (12/19/24 20:42) Chest Xray 1 View (12/19/24 20:42) Electrocardigram (12/19/24 20:42) Troponin-I Hs (12/19/24 21:42) Troponin-I Hs (12/19/24 23:42) Electrocardigram (12/19/24 21:42) Electrocardigram (12/19/24 23:42) Vital Signs Date Time Temp Pulse Resp B/P (MAP) Pulse Ox O2 Delivery O2 Flow Rate FiO2 12/19/24 20:19 98.8 88 20 139/82 92 98.8 Laboratory Tests Test 12/19/24 21:07 Lactic Acid Level Pending White Blood Count Pending Departure 1 Departure Time of Disposition: 21:24 Impression: Primary Impression: Large pleural effusion Disposition: ADMITTED INPATIENT Condition: Stable Comments MDM: 39-year-old male with large right pleural effusion Patient is stabilized in the ED Patient admitted to hospitalist service for further treatment, evaluation and monitoring. Extensive evaluation was performed in attempt to identify or rule out: (See differential diagnosis section) The following tests were ordered, and results were reviewed by me and discussed with patient: (See diagnostic results section) The following test were independently interpreted by me: EKG, chest x-ray-lower lip pleural effusion I reviewed and agreed with the following test results read by other providers: Chest x-ray I reviewed the following notes from the pt's past medical encounters: Encounter November 2024 for similar presentation Additional information was gathered from interviewing the following independent historians: Patient's significant other bedside Discussion of management or test interpretation with external physician/other qualified health career law clerk: N/A Addressed one or more chronic illnesses with severe exacerbation, progression, or side effects of treatment: End-stage renal disease, CHF an acute or chronic illness that poses a threat to life or bodily function: Large right pleural effusion Decision regarding hospitalization or escalation of hospital level of care: Risk and benefits of admission for further treatment of patient's condition was considered. Due to patient's current clinical condition, high risk of decline and poor outcome if discharged and need for further inpatient management and monitoring, patient will be admitted to the hospital. Critical Care Note Critical Care Time?: No Stability Stability form required: No Heart Score Heart Score: Heart Score Response (Comments) Value History N/A 0 EKG N/A 0 Age N/A 0 Risk Factors N/A 0 Troponin N/A 0 Total 0 I personally scribed for DAJUAN ERAZO MD ([email or web address]) on 12/19/24 at 20:47. Electronically submitted by John Abdalla ([facility]). DAJUAN ERAZO MD Dec 19, 2024 20:47
--- NOTE | 2024-12-19 21:06 | DVH ---
CLINICAL HISTORY: Shortness of breath TECHNIQUE: Single view of the chest was obtained. COMPARISON: XY CHEST XRAY 1 VIEW on DOS: 11/13/23, XY CHEST XRAY 1 VIEW on DOS: 11/12/23, XY CHEST XRAY 1 VIEW on DOS: 11/11/23, XY CHEST PORTABLE on DOS: 11/10/23, XY CHEST PORTABLE on DOS: 10/17/23 FINDINGS: The heart size and pulmonary vasculature are normal. There are large right and small left pleural effusions with adjacent atelectasis. An underlying process is not excluded. IMPRESSION: Large right and small left pleural effusion
[2024-12-19 21:07] LABS: Base Excess 3.7 mmol/L (-2.0-3.0)
[2024-12-19 21:47] LABS: Anion Gap 14 (5-15); Carbon Dioxide 28 mmol/L (20-31); Chloride 99 mmol/L (98-107); Glucose 92 mg/dL (74-106); Potassium 5.1 mmol/L (3.5-5.1); Sodium 141 mmol/L (136-145); Total Protein 7.8 g/dL (5.7-8.2)
[2024-12-19 21:48] LABS: Albumin 4.3 g/dL (3.2-4.8); BUN/Creatinine Ratio 3.6 (10.0-20.0)
[2024-12-19 21:49] LABS: Alanine Aminotransferase < 9 U/L (7-40); Alkaline Phosphatase 155 U/L (46-116); Bilirubin, Total 0.2 mg/dL (0.2-1.0); Blood Urea Nitrogen 31 mg/dL (9-23); Calcium 7.9 mg/dL (8.7-10.4); Hematocrit 24.3 % (41.0-53.0); Hemoglobin 8.2 g/dL (13.5-17.5); Mean Corpuscular Hemoglobin 32.6 pg (28.0-32.0); Mean Corpuscular Volume 96.2 fL (80.0-100.0); Nucleated Red Blood Cells % 0.1 %
[2024-12-19] MEDS ORDERED: ONDANSETRON HCL 4 MG/2 ML VIAL IV PRN (23:30)
--- NOTE | 2024-12-19 23:49 | DVHHPRES ---
History of Present Illness Resident Creating Document: SUSAN GILLILAND RESIDENT History of Present Illness 39-year-old male with a past medical history of hypertension, atrial fibrillation, SVT, congestive heart failure HFpEF 35% (last echo done on 10/17/2023), pleural effusion, ESRD on HD (M-W-F) does not produce any urine, Surgical history of cardiac ablation, thoracocentesis, left pleurodesis has come in with a chief complaint of shortness of breaths and cough. Patient reports that in the past 4 days me had acute onset of cough associated with shortness of breaths, clear white colored phlegm that has been progressively worsening leading to difficulty breathing. Patient states that he has had fluid in his lungs before and it felt the same last time which prompted him to visit the ER. He denies any fever, chills, body, recent sick contacts, travel history, change in bowel movements. He also reports that he is on the list for cardiorenal transplant for which he takes warfarin 2 mg since June of this year. On admission, vitals- temp 98.8, pulse 88, RR 20, BP 139/82 mmHg, SpO2 99% on 2 L oxygen. Labs show Hb 8.2, BUN 31, creatinine 8.7 to, tropes negative, BNP 300, ABG shows respiratory alkalosis with metabolic compensation and chest x-ray shows large right and small left pleural effusion. We are admitting the patient for further workup and management. PMH: As stated above PSH: As stated above Family history: Reviewed, noncontributory to the management of this case Social history: Patient denies any smoking, alcohol abuse or any illicit drug abuse Allergies: Vancomycin Code status: Full code Review of Systems Constitutional: No: Fever, Chills, Sweats, Weakness, Malaise, Other Eyes: No: Pain, Vision change, Conjunctivae inflammation, Eyelid inflammation, Other, Redness ENT: No: Ear pain, Ear discharge, Nose pain, Nose discharge, Nose congestion, Mouth pain, Mouth swelling, Throat pain, Throat swelling, Other Respiratory: Cough, Shortness of breath; No: Dry, SOB with excertion, Wheezing, Hemoptysis, Pleuritic Pain, Sputum, Wheezing, Other Cardiovascular: No: Chest Pain, Palpitations, Orthopnea, Paroxysmal Noc. Dyspnea, Edema, Lt Headedness, Other Gastrointestinal: No: Nausea, Vomiting, Abdominal Pain, Diarrhea, Constipation, Melena, Hematochezia, Other Genitourinary: No Dysuria, No Frequency, No Incontinence, No Hematuria, No Retention, No Other Musculoskeletal: No: other, neck pain, shoulder pain, arm pain, back pain, hand pain, leg pain, foot pain Skin: No: Rash, Lesions, Jaundice, Bruising, Other Neurological: No: Weakness, Numbness, Incoordination, Change in speech, Confusion, Seizures, Other Allergies: Coded Allergies: Vancomycin (Verified Allergy, Unknown, itchiness and rash, 11/11/23) Medications Current Medications Medications Dose Ordered Sig/Faheem Route Start Time Stop Time Status Last Admin Dose Admin Ondansetron HCl 4 mg Q4HP PRN IV 12/19/24 23:30 UNV Sevelamer HCl 1,600 mg TIDWM PO 12/20/24 08:00 UNV Hydralazine HCl 25 mg Q12HR PO 12/20/24 10:00 UNV Zirconium Oxide 10 gm DAILY PO 12/20/24 10:00 UNV Carvedilol 25 mg Q12HR PO 12/20/24 10:00 UNV Enoxaparin Sodium 70 mg Q12HR SC 12/20/24 10:00 UNV Exam Vital Signs Vital Signs Date Time Temp Pulse Resp B/P (MAP) Pulse Ox O2 Delivery O2 Flow Rate FiO2 12/19/24 20:19 98.8 88 20 139/82 92 98.8 Exam General Appearance: Alert, Oriented X3, Cooperative, mildly distressed HEENT: Atraumatic, Mucous membranes moist/pink Respiratory: decreased breath sounds in bilateral lungs, more in the right lung, patient on 2 L of oxygen via nasal cannula Cardiovascular: Regular rate, Normal S1, Normal S2, No murmurs Abdominal: Active bowel sounds, Soft, no distention, no tenderness Extremities: No edema, Normal pulses, No tenderness/swelling Skin: No Significant rash, except past surgical scars Neuro: Normal speech, sensorimotor deficits none Psych/Mental Status: Mental status NL, Mood NL Labs/Xrays Labs Test 12/19/24 21:57 12/19/24 21:07 12/19/24 20:56 Range/Units Troponin I High Sensitivity 26 </=54 ng/L White Blood Count 3.8 L 4.4-10.8 10^3/uL Red Blood Count 2.53 L 4.5-5.90 10^6/uL Hemoglobin 8.2 L 13.5-17.5 g/dL Hematocrit 24.3 L 41.0-53.0 % Mean Corpuscular Volume 96.2 80.0-100.0 fL Mean Corpuscular Hemoglobin 32.6 H 28.0-32.0 pg Mean Corpuscular Hemoglobin Concent 33.9 32.0-36.0 g/dL Red Cell Distribution Width 13.8 11.8-14.3 % Platelet Count 244 140-450 10^3/uL Mean Platelet Volume 8.5 6.9-10.8 fL Neutrophils (%) (Auto) 70.5 37.0-80.0 % Lymphocytes (%) (Auto) 16.8 10.0-50.0 % Monocytes (%) (Auto) 10.2 0.0-12.0 % Eosinophils (%) (Auto) 1.6 0.0-7.0 % Basophils (%) (Auto) 0.9 0.0-2.0 % Neutrophils # (Auto) 2.7 1.6-8.6 10 ^3/uL Lymphocytes # (Auto) 0.6 0.4-5.4 10 ^3/uL Monocytes # (Auto) 0.4 0-1.3 10 ^3/uL Eosinophils # (Auto) 0.1 0-0.8 10 ^3/uL Basophils # (Auto) 0 0-0.2 10 ^3/uL Nucleated Red Blood Cells 0.1 % Sodium Level 141 136-145 mmol/L Potassium Level 5.1 3.5-5.1 mmol/L Chloride Level 99 98-107 mmol/L Carbon Dioxide Level 28 20-31 mmol/L Anion Gap 14 5-15 Blood Urea Nitrogen 31 H 9-23 mg/dL Creatinine 8.72 H 0.700-1.30 mg/dL Glomerular Filtration Rate Calc 7 >90 mL/min BUN/Creatinine Ratio 3.6 L 10.0-20.0 Serum Glucose 92 74-106 mg/dL Lactic Acid Level 0.5 0.4-2.0 mmol/L Calcium Level 7.9 L 8.7-10.4 mg/dL Total Bilirubin 0.2 0.2-1.0 mg/dL Aspartate Amino Transferase (AST) 16 13-40 U/L Alanine Aminotransferase (ALT) < 9 7-40 U/L Alkaline Phosphatase 155 H 46-116 U/L B-Type Natriuretic Peptide 300.00 0-100 pg/mL Total Protein 7.8 5.7-8.2 g/dL Albumin 4.3 3.2-4.8 g/dL Blood Gas Specimen Type Arterial Blood Gas Sample Site Right radial Blood Gas Patient Temperature 37.0 Arterial Blood Date Drawn [id number] Arterial Blood pH 7.511 H 7.350-7.450 Arterial Blood Partial Pressure CO2 34.2 L 35.0-48.0 mmHg Arterial Blood Partial Pressure O2 92.1 83.0-108.0 mmHg Arterial Blood HCO3 26.7 21.0-28.0 mmol/L Arterial Blood Oxygen Saturation 96.6 94.0-98.0 % Arterial Blood Base Excess 3.7 H -2.0-3.0 mmol/L Arterial Blood Oxyhemoglobin 95.7 94.0-98.0 % Arterial Blood Carboxyhemoglobin 0.4 L 0.5-1.5 % Arterial Blood Methemoglobin 0.5 0.0-1.5 % Vitaly Test Positive Blood Gas Total Hemoglobin 8.60 L 13.5-17.5 g/dL Blood Gas Liter Flow 3.00 Blood Gas Modality Nasal cannula FiO2 % 32.0 SEPSIS Sepsis Screen Date sepsis recognized/suspect: Dec 19, 2024 Time Sepsis recognized/suspect: 2018 Recent Procedure: No On Antibiotic Therapy: No Respiratory Rate >20: No Heart Rate >90: No Temp<36 C (96.8 F) or >38.3 C: No SBP <90 or MAP <65 mmHG: No New Acute Mental Status Change: No Is the patient on CPAP, BIPAP,: No Physician Orders Abg W/ Co-Ox (12/19/24 20:42) Covid19 Antigen Laura (12/19/24 ) Rapid Influenza A&B (12/19/24 20:42) Chest Xray 1 View (12/19/24 20:42) Electrocardigram (12/19/24 20:42) Troponin-I Hs (12/19/24 23:42) Electrocardigram (12/19/24 21:42) Electrocardigram (12/19/24 23:42) Admit (12/19/24 23:24) Code Status (12/19/24 23:24) Oxygen Per Hour (12/19/24 23:24) Ondansetron Hcl (Zofran) (12/19/24 23:30) Complete Blood Count (12/20/24 04:00) Comprehensive Metabolic Panel (12/20/24 04:00) Cardiac Diet-2gna,Lofat,Lochol (12/20/24 Breakfast) Condition: Unstable (12/19/24 23:24) Echo 2d Mode Cardiac Dop (12/19/24 23:24) Strict I & O QSHIFT (12/19/24 23:24) Maintain Fluid Restrictions QSHIFT (12/19/24 23:24) Sevelamer (Renagel) (12/20/24 08:00) Hydralazine Hcl Tablet (Apresoline Table (12/20/24 10:00) Sodium Zirconium Cyclosilicate (Lokelma) (12/20/24 10:00) Carvedilol Tablet (Coreg Tablet) (12/20/24 10:00) Urinalysis (12/19/24 23:24) *Dr. Remy [facility] (12/19/24 23:24) * Radiologist Consult (12/19/24 23:24) Enoxaparin Sodium (Lovenox) (12/20/24 10:00) Vital Signs Date Time Temp Pulse Resp B/P (MAP) Pulse Ox O2 Delivery O2 Flow Rate FiO2 12/19/24 20:19 98.8 88 20 139/82 92 98.8 Laboratory Tests Test 12/19/24 21:07 Lactic Acid Level 0.5 mmol/L (0.4-2.0) White Blood Count 3.8 10^3/uL (4.4-10.8) L Assessment/Plan Assessment/Plan #Bilateral pleural effusion #Acute hypoxic respiratory failure due to above - Chest x-ray shows large right pleural effusion and small left pleural effusion - Patient produces no urine, thoracocentesis indicated- IR consult placed - therapeutic Lovenox started as patient uses warfarin as he is on the list for cardiorenal transplant - IV Zofran 4 mg q.4 PRN for nausea - PT 47.5, INR 5.28, APTT 90.2 #ESRD on hemodialysis (M-W-) #Anemia of chronic disease - patient does not produce any urine - nephrology consult placed for next dialysis - continue home medication sevelamer 1600 mg t.i.d. p.o. daily - continue home medication Lokelma 10 g p.o. daily - low hemoglobin- iron panel, ferritin #Hypertension #History of atrial fibrillation #History of SVT #Congestive heart failure, systolic, HFrEF 35%, not under acute exacerbation - continue home medication hydralazine 25 mg b.i.d. per orally daily - Continue home medication carvedilol 25 mg b.i.d. per orally daily - BNP 300 - last echo done on 10/17/2023 - repeat echo - strict I&O monitor - fluid restriction DVT prophylaxis: therapeutic Lovenox Diet: cardio-renal diet Goals of care discussed with the patient for more than 27 minutes: Full code status Case discussed with Dr. Lopez, patient Plan discussed with: Patient My Orders Orders - SUSAN GILLILAND RESIDENT Procedure Category Date Status Time Admit ADMIT 12/19/24 Transmitted 23:24 Code Status CODE 12/19/24 Transmitted 23:24 Oxygen Per Hour RT 12/19/24 Transmitted 23:24 Ondansetron Hcl PHA 12/19/24 Logged (Zofran) 23:30 Complete Blood Count LAB 12/20/24 Verified 04:00 Comprehensive LAB 12/20/24 Verified Metabolic Panel 04:00 Cardiac DIET 12/20/24 Transmitted Diet-2gna,Lofat,Lochol Breakfast Condition: Unstable YANETH 12/19/24 In Process 23:24 Echo 2d Mode Cardiac US 12/19/24 Logged DOP 23:24 Strict I & O YANETH 12/19/24 In Process 23:24 Maintain Fluid YANETH 12/19/24 In Process Restrictions 23:24 Sevelamer (Renagel) PHA 12/20/24 Logged 08:00 Hydralazine Hcl PHA 12/20/24 Logged Tablet (Apresoline 10:00 Sodium Zirconium PHA 12/20/24 Logged Cyclosilicate 10:00 Carvedilol Tablet PHA 12/20/24 Logged (Coreg Tablet) 10:00 Urinalysis LAB 12/19/24 Logged 23:24 *Dr. [facility] CONS 12/19/24 Transmitted -[place] 23:24 * Radiologist Consult CONS 12/19/24 Transmitted 23:24 Enoxaparin Sodium PHA 12/20/24 Logged (Lovenox) 10:00 Date of Service: Dec 20, 2024 Billing Provider: IRINA LOPEZ MD Common Visit Codes: 91393-[id number] INP/OBS CARE (HIGH) Secondary Visit Codes: [id number] CARE PLAN 30 MINUTES SUSAN GILLILAND RESIDENT Dec 19, 2024 23:49
[2024-12-20 00:52] LABS: Prothrombin Time 47.5 sec (9.3-11.8)
[2024-12-20 01:30] LABS: INR 5.28 (0.9-1.15); Partial Thromboplastin Time 90.2 SEC (24.5-34.5)
[2024-12-20] MEDS ORDERED: SEVELAMER 800 MG TAB PO SCH (08:00)
[2024-12-20] MEDS ORDERED: CARVEDILOL 12.5 MG TAB PO SCH (10:00)
[2024-12-20] MEDS ORDERED: ENOXAPARIN SOD 100 MG/1 ML SYRINGE SC SCH (10:00)
[2024-12-20] MEDS ORDERED: SODIUM ZIRCONIUM CYCL 10 GM PAK PO SCH (10:00)
== END 2024-12-20 03:48 | disposition left against medical advice (07) | DRG 189 ==
LOC: ER 20:05 → OVERFLOW 23:24
PROVIDERS: ATTEND Emergency Medicine
DX: J96.01 Acute respiratory failure with hypoxia (principal); N18.6 End stage renal disease; I13.2 Hypertensive heart and chronic kidney disease with heart failure and with stage 5 chronic kidney disease, or end stage renal disease; D63.8 Anemia in other chronic diseases classified elsewhere; Z99.2 Dependence on renal dialysis; I50.22 Chronic systolic (congestive) heart failure; I48.91 Unspecified atrial fibrillation; Z53.29 Procedure and treatment not carried out because of patient's decision for other reasons
CPT/HCPCS: 36415; 36600; 71045; 80053; 82805; 83605; 83880; 84484; 85025; 85610; 85730; G0378